=== PATIENT | male | born 1985 | race Caucasian/White ===

== ENCOUNTER 2017-05-28 22:13 | Emergency (ER) | payer MEDICAID ==
[~2017-05-28] VITALS: Ht 177.8 cm; Wt 61.4 kg
[~2017-05-28 22:13] MED LIST: PENI500T2 PO; TRAM50TA2 PO
[2017-05-28 23:28] VITALS: BP 125/85
== END 2017-05-28 23:30 | disposition home or self-care (01) ==
LOC: ER 22:14
DX: M25.521 Pain in right elbow (principal); F12.10 Cannabis abuse, uncomplicated; Z79.899 Other long term (current) drug therapy
CPT/HCPCS: 73080; 99284

== ENCOUNTER 2017-11-25 14:42 | Emergency (ER) | payer MEDICAID ==
[~2017-11-25] VITALS: Ht 177.8 cm; Wt 60.6 kg
[2017-11-25] MEDS ORDERED: ketorolac tromethamine 15mg/ml inj. IM ONE (15:10)
[2017-11-25] MEDS ORDERED: ketorolac trometh inj. 60 MG/2 ML VIAL IM ONE (15:20)
[2017-11-25 15:33] VITALS: BP 128/84
== END 2017-11-25 15:34 | disposition home or self-care (01) ==
LOC: ER 14:42
DX: M25.521 Pain in right elbow (principal); F12.90 Cannabis use, unspecified, uncomplicated; Z90.89 Acquired absence of other organs; X50.1XXA Overexertion from prolonged static or awkward postures, initial encounter; Y93.89 Activity, other specified; Y92.69 Other specified industrial and construction area as the place of occurrence of the external cause; Y99.9 Unspecified external cause status
CPT/HCPCS: 73080; 96372; 99284; J1885

== ENCOUNTER 2018-03-31 13:27 | Emergency (ER) | payer MEDICAID ==
[~2018-03-31] VITALS: Ht 179.1 cm; Wt 62.3 kg
[2018-03-31 13:29] VITALS: BP 123/84
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
== END 2018-03-31 13:50 | disposition left against medical advice (07) ==
LOC: ER 13:27
DX: M79.601 Pain in right arm (principal); Z53.21 Procedure and treatment not carried out due to patient leaving prior to being seen by health care provider; Y04.0XXA Assault by unarmed brawl or fight, initial encounter; Y93.89 Activity, other specified; Y92.89 Other specified places as the place of occurrence of the external cause; Y99.8 Other external cause status

== ENCOUNTER 2021-04-29 12:37 | Emergency (ER) | payer MEDICAID ==
[~2021-04-29] VITALS: Ht 180.3 cm; Wt 61.0 kg
[2021-04-29 12:58] VITALS: BP 128/90
== END 2021-04-29 16:01 | disposition home or self-care (01) ==
LOC: ER 12:37
DX: M25.532 Pain in left wrist (principal); F31.9 Bipolar disorder, unspecified; F20.9 Schizophrenia, unspecified; F12.90 Cannabis use, unspecified, uncomplicated; Z90.89 Acquired absence of other organs; Z72.89 Other problems related to lifestyle; Z79.2 Long term (current) use of antibiotics
CPT/HCPCS: 29125; 73110; 99283